=== PATIENT | male | born 1970 | race Caucasian/White ===

== ENCOUNTER 2018-10-11 17:30 | Emergency (ER) | payer OTHER ==
[2018-10-11] MEDS ORDERED: DIPHTH,PERTUSS(ACELL),TET 0.5 ML DISP.SYRIN IM ONE ×2 (17:43→17:45)
--- NOTE | 2018-10-11 17:51 | PDOC ---
History of Present Illness - General Chief Complaint: Injury Stated Complaint: PUNCTURE WOUND RIGHT KNEE Time Seen by Provider: 10/11/18 17:35 History Source: Patient Exam Limitations: No Limitations - History of Present Illness Initial Comments: 10/11/18 17:44 48 yo male no sig pmh presents to the ED after accidental puncture wound with metal object. Pt states he attempted to step over a rabbit cage and accidentally got caught on the end with a sharp metal wire. States the wire went approx 1 inch deep into the medial lower thigh. Pt was able to ambulate without difficulty and have full ROM immediately after the incident however, as the day progressed, knee flexion became more difficult and limited by pain. Denies redness, swelling, warmth to the knee, denies F/C/N/V, denies drainage from the site. Last tetanus unknown Past History - Past Medical History Allergies/Adverse Reactions: Allergies Allergy/AdvReac Type Severity Reaction Status Date / Time No Known Allergies Allergy Verified 10/11/18 17:34 Home Medications: Ambulatory Orders Cephalexin [Keflex] 500 mg PO BID 4 Days #8 capsule 10/11/18 COPD: No Other medical history: LEFT KNEE MENISCUS TEAR - Immunization History TDAP Vaccination: No - Suicide/Smoking/Psychosocial Hx Smoking History: Never smoked Hx Alcohol Use: Yes (OCCASIONAL) Drug/Substance Use Hx: No Review of Systems - Review of Systems Constitutional: No: Chills, Fever Musculoskeletal: Yes: Other (right medial lower thigh pain). No: Joint Pain Integumentary: No: Change in Color, Erythema, Rash Neurological: No: Numbness, Paresthesia, Weakness, Unsteady Gait, Ataxia *Physical Exam - Vital Signs Last Vital Signs Temp Pulse Resp BP Pulse Ox 98.1 F 64 15 147/88 99 10/11/18 17:33 10/11/18 17:33 10/11/18 17:33 10/11/18 17:33 10/11/18 17:33 - Physical Exam General Appearance: Yes: Nourished, Appropriately Dressed. No: Apparent Distress HEENT: positive: EOMI Vascular Pulses: Dorsalis-Pedis (R): 4+, Doralis-Pedis (L): 4+ Musculoskeletal: positive: Decreased Range of Motion (right knee flexion limited by painto 45 degrees ) Extremity: positive: Normal Capillary Refill. negative: Coldness, Swelling, Calf Tenderness, Erythema, Inflammation Integumentary: positive: Normal Color, Dry, Warm, Other (1mm diameter puncture wound to medial right thigh above the medial femoral condyle with pain to palpation around area) Neurologic: positive: Fully Oriented, Alert, Normal Mood/Affect, Normal Response ED Treatment Course - RADIOLOGY Radiology Studies Ordered: Category Date Time Status KNEE 2 POS-RIGHT [RAD] Stat Radiology 10/11/18 17:43 Ordered Medical Decision Making - Medical Decision Making 10/11/18 17:56 48 yo male no sig pmh presents to the ED after accidental puncture wound with metal object. Pt states he attempted to step over a rabbit cage and accidentally got caught on the end with a sharp metal wire. States the wire went approx 1 inch deep into the medial lower thigh. Pt was able to ambulate without difficulty and have full ROM immediately after the incident however, as the day progressed, knee flexion became more difficult and limited by pain. Denies redness, swelling, warmth to the knee, denies F/C/N/V, denies drainage from the site. Last tetanus unknown Vitals WNL patient able to ambulate on right knee and bare weight. Most difficulty is met with knee flexion X ray knee for evidence or retained metal or any summer path X ray neg Tetanus shot given along with oral Motrin for pain Keflex given in the ED antibiotics for prophylaxis of infection to to extent of pain and depth of injury. Unlikely extension into the joint capsule Pt safe for DC home with antibiotics and PCP f/u *DC/Admit/Observation/Transfer Diagnosis at time of Disposition: Puncture wound of right thigh without foreign body Qualifiers: Encounter type: initial encounter Qualified Code(s): S71.131A - Puncture wound without foreign body, right thigh, initial encounter - Discharge Dispostion Disposition: HOME Condition at time of disposition: Good Decision to Admit order: No - Prescriptions Prescriptions: Cephalexin [Keflex] 500 mg PO BID 4 Days #8 capsule - Referrals Referrals: Merlin Smith MD [Staff Physician] - - Patient Instructions Additional Instructions: Please see your primary doctor within the next 48 hours. Call to make an appointment with Dr. Smith. Take the antibiotic Keflex 2 times a day for the next 4 days to prevent infection. Use NSAID medication such as Motrin over the counter every 8 hours for pain and swelling control. Rest and ice the knee. Return to the ER for new or concerning symptoms including but not limited to: high fevers, worsening knee pain, extension of swelling/redness, inability to walk. Thank you - Post Discharge Activity
[2018-10-11] MEDS ORDERED: IBUPROFEN 600 MG TABLET (FP) PO ONE ×2 (17:52→17:57)
[2018-10-11 17:56] VITALS: BP 147/88; PULSE 64; TEMP 98.1; BMI 26.6
--- NOTE | 2018-10-11 18:06 | PDOC ---
Attending Attestation - Resident Resident Name: AtiyaLuis - ED Attending Attestation I have performed the following: I have examined & evaluated the patient, The case was reviewed & discussed with the resident, I agree w/resident's findings & plan, Exceptions are as noted - HPI HPI: 10/11/18 17:38 48y M no pmhx presents with puncture wound sustained on the R thigh. Pt was doing yard work and lifted his leg and it poked into a peice of wire from a newly built but unused rabbit cage. Pt notse there was some minimal pain at first, but gradually the pain got worse and worse. NOtes the distal end of his thigh was getting more sore and it was painful to move his leg and walk. It hurt more to actively flex his knee and less during extension. Denie any fever/ chills, n/v, numbness/tingling/weakness. exam: general: no acute distress RLE: 1mm puncture wound on the media/distal end of his R thigh (vastas medialis obliqous). no surrounding erythema/induration/fluctuance. mild ttp to approx 1.5cm distal. No ttp at joint, pain with active flexion of knee, minimal discomfort with passive ROM. no knee effusion appreciated suspect puncture ov VMO, considered but do not invovlement of capsule (was approx 2-3 cm away, without any focal ttp, effusions) will update tetanus will give prophylax abx discussed return precautions motrin for pain 10/11/18 18:15 xray negative for fb will dc pt with return precautons - Physicial Exam PE: 10/12/18 17:28 see above - Medical Decision Making 10/12/18 17:28 see above
[2018-10-11] MEDS ORDERED: CEPHALEXIN MONOHYDRATE 500 MG CAPSULE (UD) PO ONE (18:18)
[2018-10-11] MEDS ORDERED: CEPHALEXIN MONOHYDRATE 500 MG CAPSULE (UD) ONE (18:20)
== END 2018-10-11 18:27 | disposition home or self-care (01) ==
LOC: FER 17:30
PROC: 3E0234Z Introduction of Serum, Toxoid and Vaccine into Muscle, Percutaneous Approach (ICD-10-PCS; principal; 2018-10-11)
DX: S71.131A Puncture wound without foreign body, right thigh, initial encounter (principal); W22.8XXA Striking against or struck by other objects, initial encounter; Y93.89 Activity, other specified; Y92.89 Other specified places as the place of occurrence of the external cause
CPT/HCPCS: 73560-TC-RT-FY; 90715; 99282-25